=== PATIENT | female | born 1990 | race Caucasian/White ===

== ENCOUNTER 2016-09-05 02:25 | Emergency (ER) | payer OTHER ==
[~2016-09-05] VITALS: Ht 160 cm; Wt 71.5 kg
[~2016-09-05 02:25] MED LIST: AMOX1TAB64 PO; ATOR20TA9 PO; HYDR25TA6 PO; LISI-170 PO; SULF1TAB24 PO; lantus; novolog
[2016-09-05 02:59] LABS: HEMOGLOBIN 12.9 g/dL (11.7-16.4)
[2016-09-05] MEDS ORDERED: ONDANSETRON 2MG/ML, 2ML IVPush ONE (03:00)
[2016-09-05] MEDS ORDERED: SODIUM CHLORIDE 0.9% 1,000ML IVBOLUS ONE (03:00)
[2016-09-05] MEDS ORDERED: SODIUM CHLORIDE FLUSH 10ML SYR IVF ONE (03:00)
[2016-09-05] MEDS ORDERED: ONDANSETRON 2MG/ML, 2ML ONE (03:04)
[2016-09-05 03:12] LABS: BLOOD UREA NITROGEN 5 mg/dL (7-18)
[2016-09-05 03:18] LABS: ASPARTATE AMINO TRANSFERASE 13 U/L (15-37)
[2016-09-05 03:38] LABS: PATH.CAST-FLAG NOT PRESENT; SPERM-FLAG NOT PRESENT; SRC-FLAG NOT PRESENT; XTAL-FLAG NOT PRESENT; YLC-FLAG NOT PRESENT
[2016-09-05 04:13] VITALS: BP 109/70
== END 2016-09-05 04:23 | disposition home or self-care (01) ==
LOC: ED 03:55
DX: E10.65 Type 1 diabetes mellitus with hyperglycemia (principal); R11.2 Nausea with vomiting, unspecified; E78.00 Pure hypercholesterolemia, unspecified; I10 Essential (primary) hypertension; Z88.1 Allergy status to other antibiotic agents; Z88.8 Allergy status to other drugs, medicaments and biological substances
CPT/HCPCS: 36415; 80053; 81001; 82962; 83690; 84703; 85025; 87086; 87147; 93005; 96361; 96374; 99285; J2405; J7030